=== PATIENT | female | born 1970 | race Caucasian/White ===

== ENCOUNTER 2018-06-25 07:42 | Day surgery (SDC) | payer MEDICAID ==
[2018-06-24 14:04] VITALS: BMI 33.2
[2018-06-25 08:09] VITALS: RESP 18; TEMP 97.5; O2SAT 98
[2018-06-25] MEDS ORDERED: Lactated Ringer's 1,000 ML IV ONE (11:10)
[2018-06-25] MEDS ORDERED: Propofol 10 mg/ml Inj (20 ML) ONE (11:14)
[2018-06-25 12:11] VITALS: PULSE 75
[2018-06-25 12:13] VITALS: BP 129/73
== END 2018-06-25 12:14 | disposition home or self-care (01) ==
LOC: C.ENDO 07:42
PROVIDERS: ATTEND Internal Medicine Gastroenterology
DX: K29.50 Unspecified chronic gastritis without bleeding (principal); M19.90 Unspecified osteoarthritis, unspecified site
CPT/HCPCS: 43239; 84703; 88305; 88312; 88342; J2001; J2704; J7120